=== PATIENT | male | born 2005 | race Caucasian/White ===

== ENCOUNTER 2023-04-23 20:57 | Inpatient (IN) | payer OTHER, BC ==
[2023-04-23] MEDS ORDERED: Morphine 4 MG/ML VIAL ONE (21:10)
[2023-04-23] MEDS ORDERED: Ondansetron PF 4 MG/2 ML Vial ONE (21:10)
[2023-04-23] MEDS ORDERED: Boostrix 0.5 ML (Tdap) VIAL (>/=7 yrs of age) ONE (21:22)
[2023-04-23] MEDS ORDERED: Ketorolac Tromethamine 30 MG/ML VIAL ONE (21:22)
[2023-04-23] MEDS ORDERED: cefTRIAXone (ROCEPHIN) 2 GM VIAL ONE (21:22)
[2023-04-23] MEDS ORDERED: HYDROmorphone 0.5 MG/0.5 ML SYRINGE ONE ×3 (21:22→22:56)
[2023-04-23 21:28] LABS: #Basophils 0.1 thou/uL (0.0-0.2); #Eosinphils 0.4 thou/uL (0.0-0.7); #Monocytes 0.7 thou/uL (0.11-0.59); #Neutrophils 6.6 thou/uL (1.40-6.50); %Basophils 0.6 % (0.0-1.0); %Eosinophils 3.5 % (0.0-10.0); %Lymphocytes 28.3 % (28.0-48.0); %Monocytes 6.2 % (0.0-4.0); Hematocrit 45.9 % (42.0-52.0); Hemoglobin 15.5 g/dL (14.0-18.0); Mean Corpuscular HGB CONC 33.8 g/dL (32.0-36.0); Mean Corpuscular Hemoglobin 27.4 pg (25.0-35.0); Mean Corpuscular Volume 81.1 fl (78.0-98.0); Mean Platelet Volume 10.3 fL (7.4-10.4); Platelet Count 344 10x3/uL (130-400); RBC Distribution Width 12.2 % (11.5-14.5); Red Blood Cell (RBC) Count 5.66 mill/uL (4.00-5.20); White Blood Cell (WBC) Count 10.9 10x3/uL (4.8-10.8)
[2023-04-23 21:50] LABS: ALT (SGPT) 61 U/L (8-55); AST (SGOT) 29 U/L (10-45); Albumin 4.5 g/dL (3.5-5.0); Alkaline Phosphatase 141 U/L (50-130); Anion Gap 15 mmol/L (10-20); BUN (Urea Nitrogen) 10 mg/dL (8.4-21.0); Bilirubin, Total 0.4 mg/dL (0.2-1.2); Calc. Creatinine Clearance 0 mL/min (70-130); Carbon Dioxide 25 mmol/L (22-29); Chloride 104 mmol/L (98-107); Estimated GFR 100; Globulin 3.1 g/dL (2.4-3.5); Glucose 129 mg/dL (70-105); Potassium 3.7 mmol/L (3.5-5.1); Protein, Total 7.6 g/dL (6.0-8.3); Sodium 140 mmol/L (136-145)
[2023-04-23] MEDS ORDERED: TETANUS, DIPHTHERIA TOX,ADULT (TDVAX) 0.5 ML VIAL IM ONE (22:13)
[2023-04-23] MEDS ORDERED: Morphine 2 MG/ML VIAL SLOW IVP PRN (22:13)
[2023-04-23] MEDS ORDERED: Acetaminophen 500 MG TAB PO SCH (22:30)
[2023-04-24] MEDS: Ketorolac Tromethamine 30 MG/ML VIAL IVP SCH ×5 (00:57→22:57)
[2023-04-24] MEDS: D5 1/2 NS w/20 mEq KCL 1,000 ML IV SCH ×4 (00:57→19:52)
[2023-04-24] MEDS: traMADol HCl 50 MG TAB PO PRN ×3 (00:58→17:32)
[2023-04-24] MEDS: Morphine 4 MG/ML VIAL SLOW IVP PRN ×3 (00:59→15:46)
[2023-04-24 01:50] VITALS: BMI 36.1
[2023-04-24] MEDS: CEFAZOLIN 2 GM in Sodium Chloride 0.9% 100 ML IVPB SCH ×3 (05:58→19:53)
[2023-04-24] MEDS ORDERED: CEFAZOLIN 1 GM VIAL SLOW IVP SCH (06:00)
[2023-04-24] MEDS ORDERED: Clindamycin/D5W 900 MG in Premix Bag 1 BAG IVPB SCH (07:30)
[2023-04-24] MEDS ORDERED: Gabapentin 300 MG CAP PO SCH (09:00)
[2023-04-24] MEDS: Acetaminophen 500 MG TAB PO SCH ×4 (09:29→19:53)
[2023-04-24] MEDS ORDERED: Ondansetron ORAL SOLN. 4 MG/5 ML UDCUP PO PRN (10:47)
[2023-04-24] MEDS ORDERED: Ondansetron ODT 4 MG TAB PO PRN (11:16)
[2023-04-24] MEDS ORDERED: fentaNYL PF 100 MCG/2 ML SYRINGE ONE (11:20)
[2023-04-24] MEDS ORDERED: Midazolam HCl 2 mg/2 ml Vial ONE (11:20)
[2023-04-24] MEDS ORDERED: Clindamycin/D5W 900 mg/50 ml Premix Bag ONE (11:41)
[2023-04-24] MEDS ORDERED: Ondansetron PF 4 MG/2 ML Vial ONE ×2 (12:05→12:20)
[2023-04-24] MEDS ORDERED: fentaNYL 50 mcg/mL 1 mL Vial ONE (12:05)
[2023-04-24] MEDS ORDERED: Lidocaine 1% PF 5 ML VIAL ONE (12:20)
[2023-04-24] MEDS ORDERED: Bupivacaine HCl 0.5%/Epinephrine 1:200,000/PF 30 ml Vial ONE (12:20)
[2023-04-24] MEDS ORDERED: PROPOFOL 200 MG/20 ML VIAL ONE (12:20)
[2023-04-24] MEDS ORDERED: Dexamethasone 20 MG/5 ML VIAL ONE (12:20)
[2023-04-24] MEDS: Gabapentin 300 MG CAP PO SCH ×2 (15:47→19:52)
[2023-04-25] MEDS: CEFAZOLIN 2 GM in Sodium Chloride 0.9% 100 ML IVPB SCH (05:11)
[2023-04-25] MEDS: Ketorolac Tromethamine 30 MG/ML VIAL IVP SCH (05:13)
[2023-04-25 05:19] LABS: #Neutrophils 7.4 thou/uL (1.40-6.50); %Basophils 0.2 % (0.0-1.0); %Eosinophils 0.4 % (0.0-10.0); %Lymphocytes 15.2 % (28.0-48.0); %Monocytes 9.9 % (0.0-4.0); %Neutrophils 73.8 % (31.0-61.0); Hematocrit 37.1 % (42.0-52.0); Hemoglobin 12.6 g/dL (14.0-18.0); Mean Corpuscular Hemoglobin 27.8 pg (25.0-35.0); Mean Corpuscular Volume 81.9 fl (78.0-98.0); Mean Platelet Volume 10.1 fL (7.4-10.4); Platelet Count 264 10x3/uL (130-400); RBC Distribution Width 12.3 % (11.5-14.5); Red Blood Cell (RBC) Count 4.53 mill/uL (4.00-5.20); White Blood Cell (WBC) Count 10.1 10x3/uL (4.8-10.8)
[2023-04-25] MEDS ORDERED: Senokot S 8.6-50 MG TAB PO SCH (09:00)
[2023-04-25] MEDS ORDERED: Polyethylene Glycol 3350 17 GM Packet PO SCH (09:00)
[2023-04-25] MEDS: Gabapentin 300 MG CAP PO SCH (09:59)
[2023-04-25] MEDS: Acetaminophen 500 MG TAB PO SCH (10:00)
[2023-04-25] MEDS: traMADol HCl 50 MG TAB PO PRN (10:02)
[2023-04-25 11:23] VITALS: BP 137/74; TEMP 98.3
== END 2023-04-25 11:34 | disposition home or self-care (01) | DRG 494 ==
LOC: ERS 20:57 → SURG A 22:20
PROVIDERS: ADMIT Specialist; ATTEND Specialist
PROC: 0QSG06Z Reposition Right Tibia with Intramedullary Internal Fixation Device, Open Approach (ICD-10-PCS; principal; 2023-04-24)
DX: S82.291B Other fracture of shaft of right tibia, initial encounter for open fracture type I or II (principal); S82.401B Unspecified fracture of shaft of right fibula, initial encounter for open fracture type I or II; Z88.0 Allergy status to penicillin; V29.99XA Rider (driver) (passenger) of other motorcycle injured in unspecified traffic accident, initial encounter; I10 Essential (primary) hypertension
CPT/HCPCS: 27752; 36415; 80053; 85025; 90471; 90715; 96365; 96375; 96376; C1713; G0390; J0696; J1100; J1170; J1650; J1885; J2250; J2270; J2405; J2704; J3010; J3480; J3490; Q0162